=== PATIENT | male | born 1980 | race Caucasian/White ===

== ENCOUNTER 2018-11-23 18:19 | Emergency (ER) | payer MEDICAID ==
[~2018-11-23] VITALS: Ht 172.7 cm; Wt 68.0 kg
--- NOTE | 2018-11-23 19:05 | NUR ---
DR. SILVA AT BEDSIDE FOR MSE
--- NOTE | 2018-11-23 19:10 | NUR ---
RAPID STREP COLLECTED AND HANDED TO YARN TWISTER.
[2018-11-23] MEDS ORDERED: DEXAMETHASONE 4 MG TABLET PO ONE (20:00)
[2018-11-23] MEDS ORDERED: ACETAMINOPHEN 325 MG TABLET PO ONE (20:00)
[2018-11-23] MEDS ORDERED: DEXAMETHASONE 1 MG TABLET ONE (20:01)
[2018-11-23] MEDS ORDERED: ACETAMINOPHEN 325 MG TABLET ONE (20:01)
--- NOTE | 2018-11-23 20:01 | NUR ---
Patient discharged to home in stable conditon. Written and verbal after care instructions given. Patient verbalizes understanding of instructions. PATIENT LEFT WITH STABLE GAIT.
[2018-11-23 20:04] VITALS: BP 104/74
== END 2018-11-23 20:04 | disposition home or self-care (01) ==
LOC: ER 18:19
DX: J02.8 Acute pharyngitis due to other specified organisms (principal); B97.89 Other viral agents as the cause of diseases classified elsewhere
CPT/HCPCS: 36415; 86403; 87070; 99283; J8540; A4663